=== PATIENT | female | born 1935 | race Caucasian/White ===

== ENCOUNTER 2016-08-25 11:17 | Inpatient (IN) | payer OTHER ==
[~2016-08-25] VITALS: Ht 172.7 cm; Wt 92.5 kg
[~2016-08-25 11:17] MED LIST: CALCIUM 600 +1 EACH PO; Cipro PO; LOSARTAN-HCTZ1 EACH PO; MULTIVITAMIN1 EAC2 PO; VESICARE5 MG PO; Vicodin,Norco 5/325 PO; XANAX0.25 MG PO
[2016-08-25 12:02] LABS: HEMATOCRIT 42.5 % (36.0-46.0); MCH 30.7 PG (29.0-34.0); MCHC 33.6 G/DL (30.0-36.0); MCV 91.2 FL (83-99); MEAN PLAT.VOLUME 10.8 uM^3 (9.5-12.4); PLATELET COUNT 284 K/uL (156-360); RBC DIS.WIDTH-CV 13.1 % (11.8-14.6); RBC DIS.WIDTH-SD 43.9 % (39-53); RED BLOOD COUNT 4.66 M/uL (3.80-5.20); WHITE BLOOD COUNT 9.9 K/uL (4.1-10.2)
[2016-08-25 12:12] LABS: CHLORIDE 100 mEq/L (99-109); POTASSIUM 4.2 mEq/L (3.7-5.4); SODIUM 138 mEq/L (136-147)
[2016-08-25 12:14] LABS: GLUCOSE 129 mg/dL (70-99)
[2016-08-25 12:15] LABS: ANION GAP 11 MEQ/L (2-14)
[2016-08-25 12:16] LABS: TOTAL BILIRUBIN 1.6 mg/dL (0.0-1.0)
[2016-08-25 12:18] LABS: ALKALINE PHOSPHATASE 71 IU/L (3-129); GFR ESTIMATE (CALCULATED) 46 mL/min/
[2016-08-25 12:19] LABS: UREA NITROGEN (BUN) 22 mg/dL (9-23)
[2016-08-25 12:21] LABS: LIPASE 27 U/L (1.0-51.0)
[2016-08-25 13:35] LABS: D-DIMER ELISA 1.12 mg/L FEU (< 0.57)
[2016-08-25 13:49] LABS: TROP-I INTERPRETATION NEGATIVE; TROPONIN-I < 0.01 ng/mL (0.0-0.30)
[2016-08-25 14:12] LABS: ADD MIUA? YES; BILIRUBIN NEGATIVE; BLOOD NEGATIVE; COLOR YELLOW ((YELLOW)); GLUCOSE (STRIP) NEGATIVE; KETONES NEGATIVE; LEUKOCYTES TRACE; NITRITE NEGATIVE; PROTEIN (STRIP) NEGATIVE; SPECIFIC GRAVITY 1.018 (1.000-1.030); UROBILINOGEN 0.2 MG/DL (0.2-1.0)
[2016-08-25 14:23] LABS: BACTERIA 1+ /HPF; EPITHELIAL CELLS RARE /HPF; HYALINE CASTS 0-5 /LPF; MUCUS TRACE /LPF; RED BLOOD CELLS 0-5 /HPF (0-5); UCUL ADDED? NO; WHITE BLOOD CELLS 15-20 /HPF (0-5)
[2016-08-25 16:01] LABS: INTER. NORMALIZED RATIO 1.1; PROTHROMBIN TIME 10.7 (9.2-11.2); PTT 29.3 (25-32)
[2016-08-25] MEDS ORDERED: CALCIUM 600 +1 EA16 PO (16:04)
[2016-08-25] MEDS ORDERED: ASPIRIN325 MG PO (16:05)
[2016-08-25] MEDS ORDERED: TYLENOL EXTRA500 MG PO (16:05)
[2016-08-25] MEDS ORDERED: TENORETIC 501 TABLET PO (16:05)
[2016-08-25 18:44] VITALS: BP 134/65
[2016-08-25 20:00] VITALS: BP 103/59
[2016-08-25 20:55] LABS: TROP-I INTERPRETATION NEGATIVE; TROPONIN-I < 0.01 ng/mL (0.0-0.30)
[2016-08-26] VITALS: BP 99/57
[2016-08-26 01:57] LABS: TROP-I INTERPRETATION NEGATIVE; TROPONIN-I < 0.01 ng/mL (0.0-0.30)
[2016-08-26 06:44] LABS: HEMATOCRIT 36.6 % (36.0-46.0); MCHC 34.4 G/DL (30.0-36.0); MCV 92.9 FL (83-99); MEAN PLAT.VOLUME 11.3 uM^3 (9.5-12.4); PLATELET COUNT 235 K/uL (156-360); RBC DIS.WIDTH-CV 13.2 % (11.8-14.6); RBC DIS.WIDTH-SD 44.5 % (39-53); RED BLOOD COUNT 3.94 M/uL (3.80-5.20); WHITE BLOOD COUNT 7.8 K/uL (4.1-10.2)
[2016-08-26 07:57] VITALS: BP 111/55
[2016-08-26 08:11] LABS: ALKALINE PHOSPHATASE 60 IU/L (3-129); ANION GAP 12 MEQ/L (2-14); CHLORIDE 100 MEQ/L (99-109); GFR ESTIMATE (CALCULATED) 51 mL/min/; GLUCOSE 99 mg/dL (70-99); POTASSIUM 4.4 MEQ/L (3.7-5.4); SAMPLE HEMOLYSIS CHECK 0; SAMPLE ICTERIC CHECK 0; SAMPLE LIPEMIA CHECK 0; SODIUM 138 MEQ/L (136-147); TOTAL BILIRUBIN 0.9 MG/DL (0.0-1.0); UREA NITROGEN (BUN) 22 mg/dL (9-23)
[2016-08-26 10:58] VITALS: BP 112/54
[2016-08-26 16:19] VITALS: BP 114/65
[2016-08-26 19:47] VITALS: BP 89/50
[2016-08-26 23:36] VITALS: BP 83/48
[2016-08-27 03:26] VITALS: BP 125/67
[2016-08-27 07:31] VITALS: BP 110/62
[2016-08-27 08:00] LABS: EOSINOPHIL (%) 2.7 % (0-5); EOSINOPHIL COUNT 0.1 K/uL (0-0.3); HEMATOCRIT 36.3 % (36.0-46.0); IMMATURE GRANULOCYTE (%) 0.6 % (0.0-0.7); INSTRUMENT ABS NEUTROPHIL CT 3.5 K/uL; LYMPHOCYTE COUNT 0.9 K/uL (1.0-2.8); MCH 30.6 PG (29.0-34.0); MCHC 33.3 G/DL (30.0-36.0); MCV 91.9 FL (83-99); MEAN PLAT.VOLUME 11.3 uM^3 (9.5-12.4); MONOCYTE (%) 12.3 % (3-12); MONOCYTE COUNT 0.7 K/uL (0-0.8); NEUTROPHIL (%) 66.8 % (45-76); NEUTROPHIL COUNT 3.5 K/uL (1.8-6.4); PLATELET COUNT 235 K/uL (156-360); RBC DIS.WIDTH-CV 12.9 % (11.8-14.6); RBC DIS.WIDTH-SD 43.4 % (39-53); RED BLOOD COUNT 3.95 M/uL (3.80-5.20)
[2016-08-27 08:03] LABS: WHITE BLOOD COUNT 5.3 K/uL (4.1-10.2)
[2016-08-27 08:22] LABS: ANION GAP 8 MEQ/L (2-14); CHLORIDE 102 MEQ/L (99-109); GFR ESTIMATE (CALCULATED) 46 mL/min/; GLUCOSE 86 mg/dL (70-99); POTASSIUM 4.2 MEQ/L (3.7-5.4); SAMPLE HEMOLYSIS CHECK 0; SAMPLE ICTERIC CHECK 0; SAMPLE LIPEMIA CHECK 0; SODIUM 140 MEQ/L (136-147); UREA NITROGEN (BUN) 22 mg/dL (9-23)
[2016-08-27] MEDS ORDERED: CEFTIN500 MG PO (09:05)
[2016-08-27] MEDS ORDERED: LOVENOX100 MG/1 M SC (09:05)
[2016-08-27 11:42] VITALS: BP 119/60
== END 2016-08-27 13:50 | disposition home or self-care (01) | DRG 176 ==
LOC: EME 11:17 → EDOF 15:44 → 5SOUTH 15:44
PROVIDERS: Emergency Medicine; Internal Medicine
DX: I26.99 Other pulmonary embolism without acute cor pulmonale (principal); N39.0 Urinary tract infection, site not specified; E11.9 Type 2 diabetes mellitus without complications; I10 Essential (primary) hypertension; G89.29 Other chronic pain; M54.9 Dorsalgia, unspecified; M19.90 Unspecified osteoarthritis, unspecified site; R32 Unspecified urinary incontinence; Z68.31 Body mass index [BMI] 31.0-31.9, adult; Z85.42 Personal history of malignant neoplasm of other parts of uterus; Z90.710 Acquired absence of both cervix and uterus; Z86.718 Personal history of other venous thrombosis and embolism; Z91.14 Patient's other noncompliance with medication regimen
CPT/HCPCS: 71275; 80048; 80053; 81003; 83690; 83880; 84484; 85025; 85027; 85379; 85610; 85730; 87040; 87077; 87086; 87186; 93005; 93970; 99281; 99285; J1650; J1885; J2270; J2405; J7030